=== PATIENT | female | born 1980 | race Caucasian/White ===

== ENCOUNTER 2016-11-08 04:13 | Emergency (ER) | payer OTHER ==
--- NOTE | ~2016-11-08 | CT2 ---
[facility] A Service of [facility] & [facility] RADIOLOGY TEXT RESULTS PATIENT: PRESTON GARCIA LOCATION: [facility] : 84 UNIT #: [id number] AGE: [address]: Connor Quinonez MD SEX: F ORDER DR: [id number] [facility] [address] [place], [place] [address] [id number] E MR#: [id number] Acc #: [id number] NAME: PRESTON GARCIA : 1980 SEX: F STUDY DATE/TIME: 11/08/2016 7:48 UNIT: ABIGAIL ROOM: STUDY DESCRIPTION: CT Abd and Pelv W Cont Attending Physician: Connor Quinonez M.D. Ordering Physician: Dwight Burns D.O. Primary Care Physician: Whit ArcePHernanRSerg MEDICAL IMAGING REPORT This report is preliminary unless electronic signature is present EXAM Abdomen and pelvis. HISTORY Weak, blood in stool, nausea 3 days, lower abdomen pain for [address] abdomen and pelvis performed with intravenous administration of 100 mL Isovue-370. Enteric contrast also administered. This CT exam was performed with one or more of the following radiation dose reduction techniques: automatic exposure control, adjustment of mA and/or kV according to patient size, and iterative reconstruction. FINDINGS Lung bases are clear. The inferior heart and pericardium are unremarkable. Study degraded by streak artifact from metallic clothing components not removed prior to examination. The liver, gallbladder, spleen, adrenal glands, kidneys are unremarkable. CT Pelvis: No inguinal adenopathy. Heterogeneous appearance of the uterus. This may be a reflection of phase of menstrual cycle. Uterus is retroverted. Slightly nodular configuration likely reflecting presence of uterine fibroids. Multiple bilateral follicular ovarian cysts. Crenelated hypodense structure in the right ovary measuring about 1.5 cm in diameter consistent with collapsing physiologic ovarian cyst. There is a dominant right ovarian cyst measuring 1.6 cm in diameter. Trace free fluid in the pelvis. Not drainable fluid collection. Likely physiologic in nature. Tubal ligation clips in the pelvis. No pelvic or retroperitoneal adenopathy. The distal esophagus, stomach, small bowel unremarkable. Appendix normal. No clearly acute colonic abnormality is seen. There is no definite pericolonic inflammatory change. Scattered colonic diverticula without evidence of diverticulitis. Cause for the [facility] A Service of [facility] & [facility] RADIOLOGY TEXT RESULTS PATIENT: PRESTON GARCIA LOCATION: [facility] : 84 UNIT #: [id number] AGE: [address]: Connor Quinonez MD SEX: F ORDER DR: patient's reported blood in stool unclear. The urinary bladder is low in volume. Bladder wall appears relatively prominent in relation to the bladder volume. Correlate with any clinical signs or symptoms of cystitis. Correlate with urinalysis. There is no ji vesicle fluid collection. No focal mural abnormality. The vascular structures are unremarkable. Bony structures unremarkable. IMPRESSION 1. Cause of the patient's bleeding unclear on basis of this examination. No acute appearing alimentary canal abnormality. There are some scattered colonic diverticula without evidence of complication. Small bowel and appendix normal. 2. Mild mural thickening of the urinary bladder relative to its volume. No focal bladder wall abnormality is seen. Correlate with any clinical or laboratory indications of cystitis. 3. Bilateral follicular ovarian cysts. There is a collapsing right ovarian cyst measuring about 1.5 cm in diameter. There is a trace amount of free fluid in the pelvis. Not drainable fluid collection and presumed physiologic in nature. 4. Evidence of uterine fibroids. Somewhat heterogeneous appearance of the uterus overall, likely reflecting phase of menstrual cycle. Uterus is retroverted. 5. Gallbladder, pancreas unremarkable. Bilateral kidneys unremarkable. Dictated by... Christian Diaz M.D. THIS IS AN ELECTRONICALLY VERIFIED REPORT Christian Diaz M.D. at 11/08/2016 6:31 PM Judith TD: 11/08/2016 09:18 JOB #: [id number] MEDICAL IMAGING REPORT Page 1 of 1 COPY
[2016-11-08 05:13] LABS: BASOPHIL# 0.1 X10e3 (0-0.3); BASOPHIL% 0.9 % (0-2.5); EOSINOPHIL# 0.3 X10e3 (0-0.7); EOSINOPHIL% 2.7 % (0.0-7.0); HEMOGLOBIN 15.7 gm/dL (12.0-16.0); LYMPHOCYTE# 3.7 X10e3 (1.0-3.5); LYMPHOCYTE% 33.7 % (17.0-45.0); MEAN CELL VOLUME 94.6 FL (83-96); MEAN CORPUSCULAR HEMOGLOBIN 32.3 PG (28-34); MEAN CORPUSCULAR HGB CONC 34.2 g/dL (30-36); MONOCYTE# 0.7 X10e3 (0-1.0); MONOCYTE% 6.2 % (3.0-12.0); NEUTROPHIL# 6.2 X10e3 (1.5-7.1); NEUTROPHIL% 56.5 % (40-75); PLATELET COUNT 226 X10e3 (140-420); RED BLOOD COUNT 4.86 X10e (3.90-5.30); RED CELL DISTRIBUTION WIDTH 11.4 % (11.0-15.5)
[2016-11-08 05:20] LABS: DIFF IND NO
[2016-11-08 05:28] LABS: PARTIAL THROMBOPLASTIN TIME 25.5 SECONDS (23.5-31.3); PROTHROMBIN TIME (PATIENT) 10.9 SECONDS (10.0-11.7)
[2016-11-08 05:49] LABS: ALBUMIN SERUM 4.8 g/dL (3.5-5.0); ALKALINE PHOSPHATASE 71 U/L (32-92); ALT (SGPT) 10 U/L (10-40); AST (SGOT) 16 U/L (10-42); BILIRUBIN,TOTAL 0.8 mg/dL (0.2-2.0); BLOOD UREA NITROGEN 6 mg/dL (9-23); CALCIUM SERUM 9.7 mg/dL (8.4-10.2); CARBON DIOXIDE 25 mmol/L (22-31); CHLORIDE 102 mmol/L (100-111); CREATININE SERUM 0.8 mg/dL (0.6-1.4); GLUCOSE FASTING 100 mg/dL (70-110); PROTEIN TOTAL SERUM 7.4 g/dL (6.0-8.3); SODIUM 137 mmol/L (135-145)
[2016-11-08 05:53] LABS: BILIRUBIN, DIRECT <0.1 mg/dL (0.0-0.2); BILIRUBIN,INDIRECT 0.7 mg/dL (0.0-0.9); POTASSIUM 2.9 mmol/L (3.5-5.1)
[2016-11-08 06:03] LABS: URINE SOURCE CLEAN CATCH
[2016-11-08 06:12] LABS: URINE APPEARANCE CLOUDY; URINE BILIRUBIN NEG (NEG); URINE BLOOD NEG (NEG); URINE COLOR YELLOW; URINE GLUCOSE NEG (NEG); URINE KETONE TRACE (NEG); URINE LEUKOCYTE ESTERASE NEG (NEG); URINE NITRATE NEG (NEG); URINE PROTEIN NEG (NEG); URINE SPECIFIC GRAVITY 1.019 (1.003-1.035)
[2016-11-08 06:18] LABS: CULTURE INDICATED? NO
== END 2016-11-08 09:21 | disposition home or self-care (01) ==
LOC: CED 04:13
PROVIDERS: Emergency Medicine
DX: K62.5 Hemorrhage of anus and rectum (principal); E87.6 Hypokalemia; J45.909 Unspecified asthma, uncomplicated; F17.210 Nicotine dependence, cigarettes, uncomplicated; Z88.5 Allergy status to narcotic agent; Z91.040 Latex allergy status
CPT/HCPCS: 36415; 74177; 80048; 80076; 81003; 84703; 85025; 85610; 85730; 86850; 86900; 86901; 96361; 96374; 96375; 99285; J1170; J2405; Q9967